=== PATIENT | female | born 1950 | race Caucasian/White ===

== ENCOUNTER 2021-12-28 17:33 | Emergency (ER) | payer MEDICARE, OTHER ==
[~2021-12-28] VITALS: Ht 165.1 cm; Wt 63.0 kg
[2021-12-28 17:33] VITALS: BP_SYST 132
--- NOTE | 2021-12-28 17:33 | NUR ---
BROUGHT IN BY [facility], TRIAGED AND REPORT GIVEN TO SIDDHARTH
[2021-12-28] MEDS ORDERED: NACL 0.9% 1,000 ML IV ONE (18:15)
--- NOTE | 2021-12-28 18:41 | NUR ---
Note madhu in ED - 12/28/21 at 1848 by [id number] FIRST CONTACT WITH PT, LAYING ON BED, AAOX3, STATES SHE HAD A SEIZURE, WITNESSED BY HER SISTER 30 MIN SLOT KEY PERSON, TONIC CLONIC, REPORTS TAKING ALL HER MEDS PRESCRIBED. PT BIBA FROM HOME. PT BIT TONGUE, BLEEDING CONTROLLED. IV SL TO LEFT HAND, IV FLUIDS STARTED ORDERED. SEIZURE PRECAUION IN [facility], CLOSE TO NURSING STATION, WILL CONT TO MONITOR. SISTER NOW AT BEDSIDE.
--- NOTE | 2021-12-28 18:48 | NUR ---
FIRST CONTACT WITH PT, WAS BIBA FROM [facility] AFTER BEING OUT IN SUN ALL DAY, WAS DIZZY AND HAD A SYNCOPAL EPISODE, DENIES LOC. WAS WITH FAMILY. PT AAOX4, IN NAD. IV SL INSERTED, IV FLUIDS STARTED ASORDERED. PT DENIE ANY CP OR SOB. SKIN W/D/I
[2021-12-28 19:15] LABS: BASOPHILS # (AUTO) 0.1 K/uL (0.0-0.2); BASOPHILS % (AUTO) 0.5 % (0.0-2.0); EOSINOPHILS # (AUTO) 0.1 K/uL (0.0-0.4); HEMATOCRIT 42.1 % (36-48); LYMPHOCYTES # (AUTO) 2.7 K/uL (1.0-5.5); LYMPHOCYTES % (AUTO) 21.7 % (20.5-51.5); MEAN CORPUSCULAR HEMOGLOBIN 29 pg (27-31); MEAN CORPUSCULAR HGB CONC 33 % (32-36); MEAN CORPUSCULAR VOLUME 86 fL (79.0-98.0); MONOCYTES # (AUTO) 1.2 K/uL (0.0-1.0); MONOCYTES % (AUTO) 9.3 % (1.7-9.3); NEUTROPHILS # (AUTO) 8.5 K/uL (1.8-7.7); NEUTROPHILS % (AUTO) 67.5 % (40.0-70.0); PLATELET COUNT (AUTO) 258 K/uL (130-430); RED BLOOD CELL COUNT(AUTO) 4.88 MIL/uL (4.2-6.2); RED CELL DISTRIBUTION WIDTH 13.2 % (9.0-15.0); WHITE BLOOD COUNT (AUTO) 12.6 K/uL (4.8-10.8)
[2021-12-28 19:37] LABS: ANION GAP 7 (5-15); CALCIUM 9.5 mg/dL (8.4-11.0); CHLORIDE 101 mmol/L (98-107); CREATININE 1.32 mg/dL (0.55-1.30); GLUCOSE 83 mg/dL (70-99); SODIUM SERUM 134 mmol/L (136-145); UREA NITROGEN, BLOOD 24 mg/dL (8-21)
[2021-12-28 19:46] LABS: GFR AFRICAN AMERICAN 51 mL/min (>90)
[2021-12-28 19:53] LABS: ALANINE AMINOTRANSFERASE 32 U/L (12-78); ALBUMIN 3.9 g/dL (3.4-4.8); ASPARTATE AMINOTRANSFERASE 33 U/L (10-37); TOTAL BILIRUBIN 0.4 mg/dL (0.0-1.0)
[2021-12-28 22:38] VITALS: BP_SYST 146
--- NOTE | 2021-12-28 22:40 | NUR ---
Patient given written and verbal discharge instructions and verbalizes understanding. ER MD discussed with patient the results and treatment provided. Patient in stable condition. ID arm band removed. IV catheter removed intact and dressing applied, no active bleeding. Patient educated on pain management and to follow up with PMD. Pain Scale . Opportunity for questions provided and answered. Medication side effect fact sheet provided.
== END 2021-12-28 22:40 | disposition home or self-care (01) ==
LOC: SED 17:33
DX: R55 Syncope and collapse (principal); R42 Dizziness and giddiness; Z79.899 Other long term (current) drug therapy
CPT/HCPCS: 99285; 96360; 71045; 80053; 82962; 85025; 84484; 36415; 93005; J7030